=== PATIENT | female | born 1985 ===

== ENCOUNTER 2019-02-26 15:31 | Emergency (ER) | payer OTHER ==
[2019-02-26 16:19] VITALS: BP 128/78; PULSE 86; RESP 16; TEMP 98.3; O2SAT 100
[2019-02-26] MEDS ORDERED: Naproxen 500 MG TAB PO STA (16:42)
[2019-02-26] MEDS ORDERED: Naproxen 500 MG TAB PO ONE (17:02)
--- NOTE | 2019-02-26 17:03 | ED PDOC ---
Lower Extremity Pain/Injury Time Seen by Provider: 02/26/19 16:26 Chief Complaint (Nursing): Lower Extremity Problem/Injury Chief Complaint (Provider): Lower Extremity Problem/Injury History Per: Patient History/Exam Limitations: no limitations Onset/Duration Of Symptoms: Days (x3 months) Current Symptoms Are (Timing): Still Present Additional Complaint(s): 33 y/o female with a PMHx of Anemia and HTN presents to the ED for evaluation of atraumatic left knee pain, onset approximately 3 months ago. Patient denies any recent falls and further describes pain as pressure-like, nonradiating, and worsens with bending and standing. Patient notes of last taking 800 mg of Motrin for pain relief, last dose at 8 AM this morning. No other complaints. Otherwise: (-) previous injury to knee, (-) previous surgery to knee (-) SOB/cough (-) chest pain (-) loss of sensation (-) recent fever. PMD: Lilia Chang (In [place], [place]). Past Medical History Reviewed: Historical Data, Nursing Documentation, Vital Signs Vital Signs: Last Vital Signs Temp 98.3 F 02/26/19 16:19 Pulse 86 02/26/19 16:19 Resp 16 02/26/19 16:19 BP 128/78 02/26/19 16:19 Pulse Ox 100 02/26/19 16:19 Primary Care Provider: Non [facility] Provider, - Medical History PMH: Anemia, HTN - Surgical History Surgical History: (x3) - Family History Family History: States: Unknown Family Hx - Home Medications Home Medications: Ambulatory Orders Medication Instructions Recorded Acetaminophen [Acetaminophen 8 650 mg PO Q8 PRN #21 tablet.er 02/26/19 Hour] Naproxen 500 mg PO BID PRN #20 tab 02/26/19 - Allergies Allergies/Adverse Reactions: Allergies Allergy/AdvReac Type Severity Reaction Status Date / Time plantain Allergy ITCHING Verified 02/26/19 16:21 Review of Systems ROS Statement: Except As Marked, All Systems Reviewed And Found Negative Musculoskeletal: Positive for: Leg Pain (left knee) Physical Exam - Reviewed Nursing Documentation Reviewed: Yes Vital Signs Reviewed: Yes - Physical Exam Comments: GENERAL APPEARANCE: Patient is awake, alert, oriented x 3, in no acute distress. Resting comfortably. SKIN: Warm, dry; (-) cyanosis. NECK: Supple ENT: Mucus membranes moist. Airway patent, (-) stridor. LOWER EXTREMITY: Left Knee: (+) Decreased ROM of the left knee secondary to pain, (+) tenderness to the lateral aspect of the knee and patella, (-) effusion, (-) erythema, (-) ecchymosis, (-) skin break, (-) warmth, (-) calf t enderness, (-) instability on valgus or varus stress, (-) anterior and posterior draw sign. Remainder of lower extremity (-) tenderness with Full ROM. Achilles tendon intact and nontender. CHEST AND RESPIRATORY: (-) wheezing (-) rales, (-) rhonchi; breath sounds equal bilaterally. Respirations even and nonlabored. HEART AND CARDIOVASCULAR: (-) irregularity; (+) distal pulse NEUROLOGIC: (+) distal sensation. NEURO: Mental status as above. Gait: limping. Speech: clear. (-) facial asymmetry. Normal cognition. - Laboratory Results Urine POC: Negative - ECG O2 Sat by Pulse Oximetry: 100 (RA) Pulse Ox Interpretation: Normal Medical Decision Making Medical Decision Making: Time: 1644 Impression: Acute Knee Pain, likely patellofemoral syndrome Plan: -- ED Urine -- Knee XR 3 views Left -- Toradol 30mg IM ordered for pain relief. -- Re-evaluation 1829 XR radiology report follows PROCEDURE: Left Knee Radiographs. Three views. HISTORY: joint pain COMPARISON: None available. FINDINGS: Examination limited by habitus. BONES: No acute displaced fracture. JOINTS: No dislocation. JOINT EFFUSION: No significant joint effusion. OTHER FINDINGS: None. IMPRESSION: No acute displaced fracture, dislocation, or significant joint effusion identified. If symptoms persist, or if there is continued clinical concern, x-ray follow-up in 7-10 days should be considered. Dada bandage ordered and applied by ED RN. NV intact after placement. RICE encouraged. On re-evaluation, patient reports improvement of symptoms. On exam, patient remains AAOx3, in no acute distress. VSS, stable for discharge. Lab/Diagnostic results d/w the patient in great detail. Diagnosis of acute knee pain, likely patellofemoral syndrome d/w the patient. Based on history, exam and diagnostic results, plan will be for outpatient follow up with ortho. Patient instructed to follow-up with pmd / referral provided / the clinic in 1- 2 days without fail. Advised to take medication as prescribed. Return to the emergency room at any time for any new or worsening symptoms. Patient states she fully agrees with and understands discharge instructions. States that she agrees with the plan and disposition. Verbalized and repeated discharge instructions and plan. I have given the patient opportunity to ask any additional questions. Scribe Attestation: Documented by Elisabeth Mclain, acting as a scribe Shorty Vences PA-C. Provider Scribe Attestation: All medical record entries made by the Scribe were at my direction and personally dictated by me. I have reviewed the chart and agree that the record accurately reflects my personal performance of the history, physical exam, medical decision making, and the department course for this patient. I have also personally directed, reviewed, and agree with the discharge instructions and disposition. Disposition - Clinical Impression Clinical Impression: Acute knee pain, Patellofemoral syndrome of left knee - Patient ED Disposition Is Patient to be Admitted: No Counseled Patient/Family Regarding: Studies Performed, Diagnosis, Need For Followup, Rx Given - Disposition Referrals: Avtar Sauceda MD [Staff Provider] - Disposition: Routine/Home Disposition Time: 18:30 Condition: STABLE Additional Instructions: The emergency medical care you received today was directed at your acute symptoms. If you were prescribed any medication, please fill it and take as directed. It may take several days for your symptoms to resolve. Return to the Emergency Department if your symptoms worsen, do not improve, or if you have any other problems. Please contact your doctor in 2 days for re-evaluation and follow up / or call one of the physicians/clinics you have been referred to that are listed on the Patient Visit Information form that is included in your discharge packet. Bring any paperwork you were given at discharge with you along with any medications you are taking to your follow up visit. Our treatment cannot replace ongoing medical care by a primary care provider (PCP) outside of the emergency department. Prescriptions: Acetaminophen [Acetaminophen 8 Hour] 650 mg PO Q8 PRN #21 tablet.er PRN Reason: Pain, Moderate (4-7) Naproxen 500 mg PO BID PRN #20 tab PRN Reason: Pain, Moderate (4-7) Instructions: How to Use an Elastic Bandage, Knee Pain, Patellofemoral Pain Forms: [employer] (Frisian), [facility] ED School/Work Excuse Print Language: QATARI - POA Present On Arrival: None
--- NOTE | 2019-02-26 18:39 | RAD ---
PROCEDURE: Left Knee Radiographs. Three views. HISTORY: joint pain COMPARISON: None available. FINDINGS: Examination limited by habitus. BONES: No acute displaced fracture. JOINTS: No dislocation. JOINT EFFUSION: No significant joint effusion. OTHER FINDINGS: None. IMPRESSION: No acute displaced fracture, dislocation, or significant joint effusion identified. If symptoms persist, or if there is continued clinical concern, x-ray follow-up in 7-10 days should be considered.
== END 2019-02-26 19:07 | disposition home or self-care (01) ==
LOC: H.ER 15:31
DX: M22.2X2 Patellofemoral disorders, left knee (principal); I10 Essential (primary) hypertension
CPT/HCPCS: 73562; 81025; 96372; 99283; J1885